=== PATIENT | female | born 1965 | race Caucasian/White ===

== ENCOUNTER 2019-10-12 05:45 | Day surgery (SDC) | payer OTHER ==
[~2019-10-12 05:45] MED LIST: ADVAIR 100-501 EACH IH; MICARDIS80 MG PO; PROVENTIL HFA6.7 GM IH; SINGULAIR10 MG PO; SPIRIVA RESPIMAT4 G1 IH
== END 2019-10-12 13:45 | disposition home or self-care (01) ==
LOC: CIR.AMB 05:45
DX: S83.011A Lateral subluxation of right patella, initial encounter (principal); M65.861 Other synovitis and tenosynovitis, right lower leg; M17.11 Unilateral primary osteoarthritis, right knee